=== PATIENT | female | born 1990 | race Hispanic/Latino ===

== ENCOUNTER 2017-11-07 09:06 | Inpatient (IN) | payer BC ==
[2017-11-07 09:12] VITALS: BMI 35.9
[2017-11-07 09:52] LABS: BASO % 0.3 % (0.0-2.0); EOS # 0.1 K/uL (0.0-0.7); EOS % 0.8 % (0.0-4.0); HEMOGLOBIN 10.8 g/dL (12.0-16.0); LYMPH # 1.7 K/uL (1.0-4.3); MEAN CELL VOLUME 86.9 fl (81.0-99.0); MEAN CORPUSCULAR HEMOGLOBIN 29.6 pg (27.0-31.0); MEAN PLATELET VOLUME 9.6 fl (7.2-11.7); MONO # 0.8 K/uL (0.0-0.8); MONO % 6.8 % (0.0-10.0); NEUT # 9.4 K/uL (1.8-7.0); NEUT % 78.1 % (50.0-75.0); RBC 3.63 Mil/uL (3.80-5.20); RED CELL DISTRIBUTION WIDTH 13.7 % (11.5-14.5)
--- NOTE | 2017-11-07 10:44 | OBADHP ---
Datetime: 11/07/2017 10:38 IP Chief Complaint Other: mild IUGR IP Adm Impression Other: mild IUGR/oligohydramnios Admit Comment, IP Provider: Discussed sono of yerterday finding and agreed with induction Will place cervidil Extremities - PN: Normal Abdomen - PN: Abnormal Breast - PN: Normal Lungs - PN: Normal Heart - PN: Normal Thyroid - PN: Normal HEENT - PN: Normal General - PN: Normal Presentation-Admit: C FHR - Baseline A Provider: 140-150 Membranes, Provider: Intact Contraction Comments Provider: irreg Comments, ACOG Physical Exam: Abd gravid NT, ext no calf tenderness Gestation - Est Wks by US: 39+ IP Hx Assessment: The History has been Reviewed and is Current Vital Signs Provider: Reviewed IP Chief Complaint: Other NICHD Variability Prov Fetus A: Moderate 6-25bpm NICHD Accel Fetus A IP Provider: 10X10 NICHD Decel Fetus A IP Provider: None Dilatation, Provider: FT Effacement, Provider: none Genitourinary Exam: Normal DTRs - PN: Normal EGA AdmitDate IP: 39.5 IP Adm Impression: Term, intrauterine IP Admit Plan: Admit to unit; Initiate labor induction protocol
[2017-11-07 12:08] VITALS: TEMP 98.3; O2SAT 100
[2017-11-08] MEDS: Lactated Ringer's 2,000 ML IV SCH ×2 (01:15→01:45)
[2017-11-08] MEDS ORDERED: Fentanyl/Bupivacaine HCl 250 ML EPI ONE (01:54)
[2017-11-08] MEDS ORDERED: Lactated Ringer's 1,000 ML IV SCH (02:30)
[2017-11-08] MEDS ORDERED: ePHEDrine 50 mg/ml Inj ONE (03:42)
[2017-11-08] MEDS ORDERED: Oxytocin 30 UNIT 30 UNITS/500 ML BAG IV ONE ×2 (09:22→10:10)
[2017-11-08] MEDS ORDERED: OXYTOCIN/0.9 % NS 20 UNIT/1,000 ML BAG IV ONE (09:22)
[2017-11-08] MEDS ORDERED: Lidocaine 1% 20 MG/2 ML PF AMP ONE ×2 (10:01→10:02)
[2017-11-08] MEDS ORDERED: OXYTOCIN/0.9 % NS 20 UNIT/1,000 ML BAG IV SCH (10:15)
[2017-11-08] MEDS ORDERED: Benzocaine/Menthol SPRAY TOP PRN (10:30)
[2017-11-08] MEDS ORDERED: Oxycodone/Acetaminophen 5/325 mg Tab PO PRN (10:30)
--- NOTE | 2017-11-08 10:30 | OBDS ---
MATERNAL INFORMATION Estimated Blood Loss (ml): 250cc Maternal Complications: None Provider Comments: Delivered a living baby girl appears term AGA, cried spontaneously nuchal cord x1 loose undone prior to full delivery, 9/9; AF clear Placenta complete and intact Uterus contrac ran well Episiotomy and small tear repaired as above. No other tears or lacerations noted Rectal do ne no defects LABOR SUMMARY EDC: 11/09/2017 00:00 No. Babies in Womb: 1 LABOR INFORMATION Reason for Induction: Oligohydramnios; Other Reason for Induction Other: mild growth restriction Cervical Ripening Agents: Cervidil Group B Beta Strep: Negative Steroids Given: None Reason Steroids Not Administered: Not Applicable MEMBRANES Membranes Rupture Method: Spontaneous Rupture of Membranes: 11/08/2017 09:09 Amniotic Fluid Color: Clear Amniotic Fluid Amount: Moderate Amniotic Fluid Odor: Normal VAGINAL DELIVERY Episiotomy: Median Laceration Extension: First Degree Laceration Type: Perineal Laceration Repair Note: small medial episiotomy done and repaired with 2-0 chromic without any compl ication Small superficial tear on lft introital area sutured with simple 2-0 chromic No other lacerat ions or tears Sponge Count Correct: Yes Sharps Count Correct: Yes Count Comment: count correct and verified by tech and RN CSECTION DELIVERY Primary Indication: N/A Secondary Indication: N/A CSection Incision: N/A Uterine Closure: N/A BABY A INFORMATION Forceps: N/A Vacuum Extraction: N/A Shoulder Dystocia : No PRESENTATION/POSITION BABY A Presentation: Cephalic Cephalic Presentation: Vertex Vertex Position: Left Occipital Anterior Breech Presentation: N/A IDENTIFICATION/MEDS BABY A ID Band Number: [id number] CORD INFORMATION BABY A Nuchal Cord : Around Neck x1, Loose
[2017-11-08] MEDS: Benzocaine/Menthol SPRAY TOP PRN (16:05)
[2017-11-08] MEDS: Oxycodone/Acetaminophen 5/325 mg Tab PO PRN (22:01)
--- NOTE | 2017-11-09 08:35 | OBPPN ---
Datetime: 11/09/2017 08:31 PP Pain Prov: Within normal limits PP Pain Prov comment: No SOB, chest or leg pains PP Nausea Prov: Denies PP Flatus Prov: Yes PP Breasts Prov: Normal PP Lungs Prov: Normal PP Abdomen/Uterus Prov: Abnormal PP Lochia Prov: Normal PP Vulva/Perineum Prov: Abnormal PP CVA Tenderness Prov: Normal PP Extremities Prov: Normal PP C/S Incision Prov: Not Applicable PP Progress Prov: Not Applicable PP Comments Phys Exam Prov: breast not engorged, Abd soft not distended fundus firm below the umb Pe rineum repaired Ext no calf tenderness PP Impression Prov: Normal progression PP Plan Prov: Continue present management PP Progress Note Prov: Pending CBC this am OOB and ambulation Continue pp care Increase po fluids IP PP Procedures: None
[2017-11-09] MEDS: Oxycodone/Acetaminophen 5/325 mg Tab PO PRN ×3 (10:24→20:23)
[2017-11-09 12:08] LABS: BASO % 0.3 % (0.0-2.0); EOS # 0.1 K/uL (0.0-0.7); EOS % 0.9 % (0.0-4.0); HEMOGLOBIN 9.8 g/dL (12.0-16.0); LYMPH # 2.2 K/uL (1.0-4.3); LYMPH % 14.5 % (20.0-40.0); MEAN CELL VOLUME 87.3 fl (81.0-99.0); MEAN CORPUSCULAR HEMOGLOBIN 30.1 pg (27.0-31.0); MEAN CORPUSCULAR HGB CONC 34.4 g/dL (33.0-37.0); MEAN PLATELET VOLUME 9.5 fl (7.2-11.7); MONO # 1.1 K/uL (0.0-0.8); NEUT # 11.9 K/uL (1.8-7.0); NEUT % 77.3 % (50.0-75.0); RBC 3.28 Mil/uL (3.80-5.20); RED CELL DISTRIBUTION WIDTH 13.8 % (11.5-14.5); WHITE BLOOD COUNT 15.4 K/uL (4.8-10.8)
[2017-11-09] MEDS: Benzocaine/Menthol SPRAY TOP PRN (20:25)
[2017-11-10] MEDS: Oxycodone/Acetaminophen 5/325 mg Tab PO PRN ×3 (00:38→08:34)
--- NOTE | 2017-11-10 08:51 | OBPPN ---
Datetime: 11/10/2017 08:45 PP Pain Prov: Within normal limits PP Pain Prov comment: No SOB chest or leg pains PP Nausea Prov: Denies PP Flatus Prov: Yes PP Nausea Prov comment: voiding well PP Breasts Prov: Normal PP Heart Prov: Normal PP Lungs Prov: Normal PP Abdomen/Uterus Prov: Abnormal PP Lochia Prov: Normal PP Vulva/Perineum Prov: Abnormal PP CVA Tenderness Prov: Normal PP Extremities Prov: Normal PP C/S Incision Prov: Not Applicable PP Progress Prov: Not Applicable PP Comments Phys Exam Prov: breast not engorged, Abd soft ND fundus firm below the umb Perineum repa ired Ext no calf tenderness PP Impression Prov: Normal progression PP Plan Prov: Discharge PP Progress Note Prov: D/C home with instructions and pelvic and bed rest Appt to office 4-6 wks Con tinue PNC vit and iron IP PP Procedures: None Vital Signs Provider PP: Reviewed
--- NOTE | 2017-11-10 08:54 | OBDCSUM ---
Datetime: 11/10/2017 08:50 Discharged to, Provider: Home Follow up at, Provider: Dr Lopez Disch Instr Activity: Bedrest; May be up to bathroom; May be up for meals; May Shower Disch Instr Diet: Regular Discharge Instructions, Provider: Routine instructions given Discharge Diagnosis, Provider: Term Delivered Discharge Time: 11/10/2017 08:51 Follow up in weeks, Provider: 4-6 wks Disch Referrals: None Contraception discussed, Prov: Yes Disch Activity Restrictions: No exercising; No lifting; No driving; Minimize walking; Minimize stair -climbing; No sexual activity; Nothing in vagina - [place], tampons, douche Discharge Comment, Provider: Continue PNC vit and iron Discharge Diagnosis Prov Other: oligohydramnios Mild IUGR Contraception after Delivery: Undecided
[2017-11-10] MEDS: Benzocaine/Menthol SPRAY TOP PRN (10:51)
[2017-11-10 19:29] VITALS: BP 122/63; PULSE 77; RESP 20
== END 2017-11-10 11:20 | disposition home or self-care (01) | DRG 775 ==
LOC: H.L&D 09:13 → H.OB/GYN 11-08 15:35
PROVIDERS: ADMIT Specialist; ATTEND Specialist
PROC: 4A1HXCZ Monitoring of Products of Conception, Cardiac Rate, External Approach (ICD-10-PCS; 2017-11-07)
PROC: 10E0XZZ Delivery of Products of Conception, External Approach (ICD-10-PCS; principal; 2017-11-08)
PROC: 0W8NXZZ Division of Female Perineum, External Approach (ICD-10-PCS; 2017-11-08)
PROC: 0HQ9XZZ Repair Perineum Skin, External Approach (ICD-10-PCS; 2017-11-08)
DX: O36.5930 Maternal care for other known or suspected poor fetal growth, third trimester, not applicable or unspecified (principal); O41.03X0 Oligohydramnios, third trimester, not applicable or unspecified; O69.81X0 Labor and delivery complicated by cord around neck, without compression, not applicable or unspecified; O70.0 First degree perineal laceration during delivery; Z37.0 Single live birth; Z3A.39 39 weeks gestation of pregnancy